=== PATIENT | female | born 1945 | race Two or more races ===

== ENCOUNTER 2022-06-20 06:00 | Day surgery (SDC) | payer OTHER ==
[2022-06-20] MEDS ORDERED: TRAM1TAB98 PO (11:57)
[2022-06-20] MEDS ORDERED: CEPHALEXIN750 MG PO (11:58)
== END 2022-06-20 14:40 | disposition home or self-care (01) ==
LOC: CIR.AMB 06:00
PROVIDERS: ATTEND Obstetrics & Gynecology Gynecology
DX: N32.81 Overactive bladder (principal); N39.41 Urge incontinence; Z20.822 Contact with and (suspected) exposure to COVID-19; I10 Essential (primary) hypertension; E11.9 Type 2 diabetes mellitus without complications; R80.8 Other proteinuria; E11.40 Type 2 diabetes mellitus with diabetic neuropathy, unspecified
CPT/HCPCS: 64581; 64590; 95972; C1778; L8679